=== PATIENT | female | born 1985 ===

== ENCOUNTER 2018-02-02 17:13 | Emergency (ER) | payer OTHER ==
[2018-02-02 17:14] VITALS: BMI 33.1
[2018-02-02 17:36] VITALS: TEMP 98
--- NOTE | 2018-02-02 18:07 | ED PDOC ---
Arrival/HPI - General Chief Complaint: Female Genitourinary Time Seen by Provider: 02/02/18 17:24 - History of Present Illness Narrative History of Present Illness (Text): 32 y/o F currently 12 weeks presenting to the ED for vaginal bleeding that occurred prior to arrival. The patient states she was ambulating with her boyfriend to the pharmacy when she noted bright red blood per her vagina. The patient denies feeling dizzy, abdominal pain and syncopal episodes prior to or after the event. She denies having care, engaging in coitus or inserting any foreign objects into the vagina. She denies obtaining an US, but reports initiating care at the [facility]([place]). She denies chest pain, shortness of breath, back pain, syncopal episodes, emesis, numbness and tingling or dysuria. Time/Duration: Prior to Arrival Symptom Onset: Sudden Symptom Course: Resolved Severity Level: Mild Context: Walking Past Medical History - Provider Review Nursing Documentation Reviewed: Yes - Travel History Have you recently traveled outside [place] w/in the past 3 mons?: No - Infectious Disease Hx of Infectious Diseases: None - Cardiac Hx Cardiac Disorders: No - Pulmonary Hx Asthma: Yes - Neurological Hx Seizures: No - Hematological/Oncological Hx Cancer: No - Musculoskeletal/Rheumatological Hx Falls: No - Genitourinary/Gynecological Other/Comment: miscarriagex1, abortionx2 - Psychiatric Hx Substance Use: Yes (PCP monthly) - Surgical History Hx Dilation and Curettage: Yes - Anesthesia Hx Anesthesia: Yes Hx Anesthesia Reactions: No Hx Malignant Hyperthermia: No - Suicidal Assessment Feels Threatened In Home Enviroment: No Family/Social History - Physician Review Nursing Documentation Reviewed: Yes Family/Social History: No Known Family HX Smoking Status: Former Smoker Hx Alcohol Use: No Hx Substance Use: Yes (PCP monthly) Substance used: PCP Allergies/Home Meds Allergies/Adverse Reactions: Allergies Penicillins Allergy (Verified 12/07/17 10:17) Home Medications: Home Meds Medication Instructions Recorded Confirmed Pnv No.95/Ferrous Fum/Folic AC 1 tab PO DAILY 02/03/18 02/03/18 [] Review of Systems - Physician Review All systems were reviewed & negative as marked: Yes - Review of Systems Cardiovascular: absent: Chest Pain, Palpitations, Edema Gastrointestinal: Nausea. absent: Abdominal Pain, Constipation, Diarrhea, Vomiting, Appetite Changes Genitourinary Female: Vaginal Bleeding. absent: Dysuria, Frequency, Hematuria, Vaginal Discharge Skin: absent: Rash Physical Exam Vital Signs Reviewed: Yes Vital Signs Temp Pulse Resp BP Pulse Ox 02/02/18 17:27 98 F 94 H 19 124/76 100 Temperature: Afebrile Blood Pressure: Normal Pulse: Regular Respiratory Rate: Normal Appearance: Positive for: Well-Appearing, Non-Toxic, Comfortable Pain Distress: None Mental Status: Positive for: Alert and Oriented X 3 - Systems Exam Head: Present: Atraumatic, Normocephalic Pupils: Present: PERRL Extroacular Muscles: Present: EOMI Conjunctiva: Present: Normal Mouth: Present: Moist Mucous Membranes Neck: Present: Normal Range of Motion Respiratory/Chest: Present: Clear to Auscultation, Good Air Exchange. No: Respiratory Distress Cardiovascular: Present: Regular Rate and Rhythm, Normal S1, S2. No: Murmurs Abdomen: Present: Normal Bowel Sounds, Other. No: Tenderness, Distention, Peritoneal Signs Genitourinary/Pelvic Exam: Present: Normal External Genitalia, Vaginal Bleeding, Other (Cervical os open with dark red large clots ). No: Vaginal Lesions, Adenexal Tenderness, Adenexal Mass, Cervical Motion Tendernes, Odor Lower Extremity: Present: Normal Inspection, Edema Neurological: Present: GCS=15, CN II-XII Intact, Speech Normal Skin: Present: Warm, Rashes, Normal Color Psychiatric: Present: Alert, Oriented x 3, Normal Insight, Normal Concentration Medical Decision Making ED Course and Treatment: Impression 32F currently 12 weeks with vaginal bleeding Differential Diagnoses Include But Are Not Limited To: Threatened Placenta Previa Plan --Labs --UA/urine --PT/PTT -- U/S --Reassess & disposition Progress Notes 02/02/18 19:14 Patient noted to be actively having large blood clots per vaginal canal. External os open on bimanual exam. Pending US. Signout given to Dr. Phillips who will resume the patient's care. - RAD Interpretation Radiology Orders: 02/02/18 17:36 TRANSVAGINAL [US] Stat Disposition/Present on Arrival - Present on Arrival Any Indicators Present on Arrival: No History of DVT/PE: No History of Uncontrolled Diabetes: No Urinary Catheter: No History of Decub. Ulcer: No History Surgical Site Infection Following: None - Disposition Have Diagnosis and Disposition been Completed?: Yes Diagnosis: Threatened Disposition: HOME/ ROUTINE Disposition Time: 20:00 Patient Plan: Discharge Condition: STABLE Discharge Instructions (ExitCare): Threatened Miscarriage (DC) Additional Instructions: bed rest tylenol for pain follow up with your social and human services assistant Forms: [employer] (Swazi)
[2018-02-02 18:21] LABS: URINE BILIRUBIN NEGATIVE (NEGATIVE); URINE BLOOD MODERATE (NEGATIVE); URINE GLUCOSE (UA) NEGATIVE (NEGATIVE); URINE LEUKOCYTE ESTERASE NEGATIVE Leu/uL (NEGATIVE); URINE PROTEIN 30 mg/dL (<30 mg/dL)
[2018-02-02 18:26] LABS: HCG,QUALITATIVE URINE POSITIVE (NEGATIVE); URINE APPEARANCE CLEAR (CLEAR); URINE COLOR YELLOW (YELLOW)
[2018-02-02 18:38] LABS: BASO # 0.01 K/mm3 (0.0-2.0); BASO % 0.1 % (0.0-3.0); EOS # 0.1 (0.0-0.7); EOS % 0.7 % (1.5-5.0); GRAN # 6.9 (1.4-6.5); GRAN % 71.4 % (50.0-68.0); HEMOGLOBIN 12.2 g/dL (12.0-16.0); LYMPH # 2.2 (1.2-3.4); LYMPH % 22.3 % (22.0-35.0); MEAN CELL VOLUME 83.7 fl (80.0-105.0); MEAN CORPUSCULAR HEMOGLOBIN 27.3 pg (25.0-35.0); MEAN CORPUSCULAR HGB CONC 32.6 g/dl (31.0-37.0); MEAN PLATELET VOLUME 10.9 fl (7.0-11.0); MONO # 0.5 (0.1-0.6); MONO % 5.5 % (1.0-6.0); RBC 4.47 10^6/uL (3.5-6.1); RED CELL DISTRIBUTION WIDTH 15.4 % (11.5-14.5); WHITE BLOOD COUNT 9.7 10^3/ul (4.5-11.0)
[2018-02-02 18:43] LABS: URINE RBC 20 - 25 /hpf (0-2)
[2018-02-02 18:47] LABS: INR 1.08; PARTIAL THROMBOPLASTIN TIME 25.3 Seconds (25.1-36.5); PROTHROMBIN TIME 12.3 SECONDS (9.4-12.5)
[2018-02-02 18:50] LABS: ALB/GLOB RATIO 1.1 (1.1-1.8); ALBUMIN 4.1 g/dL (3.0-4.8); ALT/SGPT 15 U/L (7-56); AST/SGOT 21 U/L (14-36); BLOOD UREA NITROGEN 12 mg/dL (7-21); CALCIUM 9.3 mg/dL (8.4-10.5); GFR NON-AFRICAN AMERICAN > 60
--- NOTE | 2018-02-02 21:05 | ED PDOC ---
Physical Exam Vital Signs Temp Pulse Resp BP Pulse Ox 02/02/18 17:38 98 F 85 19 129/53 L 99 02/02/18 17:27 98 F 94 H 19 124/76 100 Medical Decision Making ED Course and Treatment: 02/02/18 19:00 Case endorsed to me by Dr. Dinh, pending US, reassessment, and disposition. 02/02/18 23:12 Transvaginal US shows: There is a single live intrauterine gestation in a variable presentation at the time of the study. cardiac activity is identified. cardiac activity is 151 bpm. motion is identified. The placenta is situated anteriorly and posteriorly and is low lying and appears to be covering the cervical loss. There is a small amount of fluid and trace opening of the cervical os. Opening of the cervical loss measures 0.13 cm. Amniotic fluid appears within normal limits. Biparietal diameter is 2.8 cm corresponding to 14 weeks and 4 days. Abdominal circumference is 7.3 cm corresponding to 13 weeks and 6 days. Head circumference is 9.9 cm corresponding to 14 weeks and 4 days. Femur length is 1.5 cm corresponding to 14 weeks and 4 days. The right and left ovaries appear within normal limits in size. Impression: Single live intrauterine gestation of approximately 14 weeks and 4 days. Placenta is low lying and overlying the cervical loss. Trace amount of fluid and opening of the cervical loss of approximately 0.13 cm. Close clinical correlation is advised. Electronically signed on Feb 02, 2018 11:10:51 PM EDT by: Reno Rushing M.D., Certified by [facility], Diagnostic Radiology 02/02/18 23:23 On re-evaluation, patient feels better and is in no acute distress. I have discussed the results and plan with the patient, who expresses understanding. Patient in agreement with plan to be discharged home. Patient is stable for dis charge. Patient was instructed to follow up with physician/OBGYN or return if symptoms worsen or new concerning symptoms arise. - Lab Interpretations Lab Results: 02/02/18 18:15 02/02/18 18:15 Lab Results 02/02/18 18:15: Blood Type O POSITIVE, Antibody Screen Negative, BBK History Checked Patient has bt 02/02/18 18:15: Urine Color Yellow, Urine Appearance Clear, Urine pH 7.0, Ur Specific [place] 1.025, Urine Protein 30 H, Urine Glucose (UA) Negative, Urine Ketones Trace H, Urine Blood Moderate H, Urine Nitrate Negative, Urine Bilirubin Negative, Urine Urobilinogen 1.0 H, Ur Leukocyte Esterase Negative, Urine RBC 20 - 25, Urine WBC 2 - 5, Ur Epithelial Cells 6 - 8, Urine HCG, Qual Positive 02/02/18 18:15: Beta HCG, Quant 15004.00 H 02/02/18 18:15: Sodium 138, Potassium 3.3 L, Chloride 105, Carbon Dioxide 26, Anion Gap 10, BUN 12, Creatinine 0.5 L, Est GFR ( Amer) > 60, Est GFR (Non-Af Amer) > 60, Random Glucose 81, Calcium 9.3, Total Bilirubin 0.2, AST 21, ALT 15, Alkaline Phosphatase 52, Total Protein 7.8, Albumin 4.1, Globulin 3.7, Albumin/Globulin Ratio 1.1 02/02/18 18:15: PT 12.3, INR 1.08, APTT 25.3 02/02/18 18:15: WBC 9.7, RBC 4.47, Hgb 12.2, Hct 37.4, MCV 83.7, MCH 27.3, MCHC 32.6, RDW 15.4 H, Plt Count 231, MPV 10.9, Gran % 71.4 H, Lymph % (Auto) 22.3, [place] % (Auto) 5.5, Eos % (Auto) 0.7 L, Baso % (Auto) 0.1, Gran # 6.90 H, Lymph # (Auto) 2.2, [place] # (Auto) 0.5, Eos # (Auto) 0.1, Baso # (Auto) 0.01 - RAD Interpretation Radiology Orders: 02/02/18 17:36 OB TRANSVAGINAL [US] Stat Buggy Driver: Radiologist Disposition/Present on Arrival - Present on Arrival Any Indicators Present on Arrival: No History of DVT/PE: No History of Uncontrolled Diabetes: No Urinary Catheter: No History of Decub. 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
[2018-02-02 23:00] VITALS: RESP 18
[2018-02-03 00:22] VITALS: BP 115/85; PULSE 85; O2SAT 100
--- NOTE | 2018-02-03 14:22 | US ---
Date of service: 02/02/2018 PROCEDURE: OB Pelvic Ultrasound HISTORY: 12 weeks w/ vaginal bleeding LMP: COMPARISON: None available. FINDINGS: UTERUS: [place]-rump length equivalent to 13 weeks 1 day gestational age. biometry yields a gestational age of 14 weeks 1 day. Heart rate: 151 bpm. age (Ultrasound estimated): 14 weeks 1 day [place]-gestational hemorrhage: None. Date of delivery (Ultrasound estimated) : 08/02/2018 The placenta is seen covering the internal cervical os at the time of this examination. Follow-up with pelvic ultrasound examination is advised during the 2nd trimester of . CERVIX: Measures 3.8 cm. Trace endocervical fluid, nonspecific. Cervix closed.. RIGHT OVARY: Not visualized LEFT OVARY: Measures 1.9 x 1.4 x 1.3 cm. No solid mass. Normal flow. FREE FLUID: None. OTHER FINDINGS: None. IMPRESSION: Single live intrauterine gestation of approximately 14 weeks 1 day. heart rate 151 beats per minute. Cervix long and closed. Trace endocervical fluid. Placenta covers the internal cervical os. Follow-up during 2nd trimester with pelvic ultrasound examination is advised. The preliminary findings for this examination were reported by [facility] at 11:10 p.m. on 02/02/2018. There is concurrence of this report with the preliminary findings.
== END 2018-02-02 23:30 | disposition home or self-care (01) ==
LOC: ED 17:13
DX: O20.0 Threatened abortion (principal); Z3A.14 14 weeks gestation of pregnancy